=== PATIENT | female | born 1970 | race African-American/Black ===

== ENCOUNTER 2016-11-08 10:57 | Emergency (ER) | payer OTHER ==
[~2016-11-08] VITALS: Ht 165.1 cm; Wt 84.8 kg
--- NOTE | ~2016-11-08 | EKG ---
PATIENT: LUCIO ELY UNIT #: [id number] Ventricular Rate: 69 BPM Atrial Rate: 69 BPM P-R Interval: 122 ms QRS Duration: 88 ms Q-T Interval: 422 ms QTC Calculation(Bezet): 452 ms P Spooner: 48 degrees Calculated R Spooner: 32 degrees Calculated T Spooner: 17 degrees Diagnosis Line: Normal sinus rhythm Diagnosis Line: Normal ECG Diagnosis Line: No previous ECGs available Diagnosis Line: Confirmed by LUIS ENRIQUE MARKS MD ([id number]) on 11/09/2016 Diagnosis Line: 5:54:11 PM INTERPRETING MD: SELINA HERNÁNDEZ
--- NOTE | ~2016-11-08 | CR72 ---
[facility] A Service of [facility] RADIOLOGY TEXT RESULTS PATIENT: LUCIO ELY LOCATION: [facility] : 72 UNIT #: [id number] AGE: [address]: Viktoria Plaza MD SEX: F ORDER DR: [id number] [facility] [address] [place], [place] [address] [id number] E MR#: [id number] Acc #: [id number] NAME: LUCIO ELY : 1970 SEX: F STUDY DATE/TIME: 11/08/2016 11:48 UNIT: [facility] ROOM: STUDY DESCRIPTION: CR Chest Single View Portable Attending Physician: Viktoria Plaza M.D. Ordering Physician: Viktoria Plaza M.D. Primary Care Physician: No Primary Care Physician MEDICAL IMAGING REPORT This report is preliminary unless electronic signature is present EXAM AP view of the chest. COMPARISON None. INDICATIONS 46-year-old female with dyspnea, chest pain, cough and chest congestion for 2 days. FINDINGS Cardiomediastinal silhouette is normal. No pneumothorax, pleural effusion or acute airspace disease. Normal cardiomediastinal silhouette. IMPRESSION Normal exam. Dictated by... Fernando Churchill M.D. THIS IS AN ELECTRONICALLY VERIFIED REPORT Fernando Churchill M.D. at 11/10/2016 7:41 PM BRIJESH/bucky TD: 11/08/2016 15:22 JOB #: [id number] MEDICAL IMAGING REPORT Page 1 of 1 COPY
[2016-11-08 12:05] LABS: BASOPHIL% 0.5 % (0-2.5); EOSINOPHIL# 0.1 X10e3 (0-0.7); HEMATOCRIT 41.5 % (35.0-45.0); HEMOGLOBIN 13.8 gm/dL (12.0-16.0); LYMPHOCYTE# 2.2 X10e3 (1.0-3.5); MEAN CELL VOLUME 90.4 FL (83-96); MEAN CORPUSCULAR HEMOGLOBIN 30.2 PG (28-34); MEAN CORPUSCULAR HGB CONC 33.4 g/dL (30-36); MEAN PLATELET VOLUME 8.5 FL (6.5-11.5); MONOCYTE# 0.4 X10e3 (0-1.0); MONOCYTE% 5.9 % (3.0-12.0); NEUTROPHIL# 3.8 X10e3 (1.5-7.1); NEUTROPHIL% 58.6 % (40-75); PLATELET COUNT 241 X10e3 (140-420); RED BLOOD COUNT 4.59 X10e (3.90-5.30); RED CELL DISTRIBUTION WIDTH 14.2 % (11.0-15.5); WHITE BLOOD COUNT 6.5 X10e3 (4.0-10.5)
[2016-11-08 12:07] LABS: DIFF IND NO
[2016-11-08 12:09] LABS: POC - CKMB <1.0 ng/mL (0.0-7.9); POC - TROPONIN <0.05 ng/mL (<=0.05)
[2016-11-08 12:26] LABS: CALCIUM SERUM 8.9 mg/dL (8.4-10.2); CREATININE SERUM 0.9 mg/dL (0.6-1.4); GLOM FILT RATE Estimated 89.6 mL/min (>60); POTASSIUM 3.6 mmol/L (3.5-5.1)
[2016-11-08 13:36] LABS: POC - CKMB <1.0 ng/mL (0.0-7.9); POC - TROPONIN <0.05 ng/mL (<=0.05)
== END 2016-11-08 14:16 | disposition home or self-care (01) ==
LOC: CED 10:57
PROVIDERS: Emergency Medicine
DX: R07.89 Other chest pain (principal); F32.9 Major depressive disorder, single episode, unspecified; F17.210 Nicotine dependence, cigarettes, uncomplicated
CPT/HCPCS: 71010; 80048; 82553; 84484; 85025; 93005; 99285